=== PATIENT | female | born 2000 | race Caucasian/White ===

== ENCOUNTER 2018-06-04 01:31 | Emergency (ER) | payer OTHER ==
[~2018-06-04] VITALS: Ht 147.3 cm; Wt 47.3 kg
[2018-06-04 01:45] VITALS: TEMP 36.7; Ht 147.3 cm; Wt 47.3 kg
[2018-06-04] MEDS ORDERED: IBUPROFEN 600 MG TAB PO STA (02:01)
[2018-06-04] MEDS ORDERED: ACETAMINOPHEN 325 MG TAB PO STA (02:01)
[2018-06-04] MEDS ORDERED: LIDOCAINE 1% BUFFERED INJ 20 ML VIAL INFIL ONE (02:15)
[2018-06-04] MEDS ORDERED: IBUPROFEN 200 MG TAB ONE (02:17)
[2018-06-04] MEDS ORDERED: DROS1TAB24 PO (03:42)
[2018-06-04] MEDS ORDERED: VNTHFA/IN INH (03:43)
[2018-06-04] MEDS ORDERED: SERT50TA PO (03:43)
[2018-06-04] MEDS ORDERED: CETI10TA84 PO (03:43)
[2018-06-04] MEDS ORDERED: TRIA1SPR4 NAE (03:44)
[2018-06-04] MEDS ORDERED: BECL80AE7 PO (03:44)
[2018-06-04 04:03] VITALS: BP 93/52; PULSE 67; O2SAT 98
--- NOTE | 2018-06-04 07:27 | DIAGNOSTIC IMAGING REPORT ---
LEFT WRIST 4 VIEWS CLINICAL HISTORY: Fall with left wrist injury. FINDINGS: 4 views of the left wrist are obtained. No prior studies are available for comparison at the time of dictation. The skeletal structures are well mineralized. No fracture is seen. The joint spaces of the wrist are maintained. Mild soft tissue swelling is noted. IMPRESSION: Mild soft tissue swelling with no radiographic evidence of left wrist fracture. Electronically signed by: Gucci Love M.D. 06/04/2018 7:26 AM Dictated Date/Time: 06/04/2018 7:25 AM
--- NOTE | 2018-06-04 07:31 | DIAGNOSTIC IMAGING REPORT ---
HEAD CT NONCONTRAST CT DOSE: 537.48 mGy.cm HISTORY: Fall. Left sided head injury TECHNIQUE: Multiaxial CT images of the head were performed without the use of intravenous contrast. Automated exposure control was utilized for this study. A dose lowering technique was utilized adhering to the principles of ALARA. Comparison: None. Findings: The paranasal sinuses and mastoid air cells are clear. The calvarium and skull base are intact. The ventricles and sulci are within normal limits. There is no mass, hematoma, midline shift, or acute infarct. Impression: No acute intracranial abnormality. Electronically signed by: Reggie Rivera M.D. 06/04/2018 7:30 AM Dictated Date/Time: 06/04/2018 7:27 AM
--- NOTE | 2018-06-05 00:08 | EMERGENCY ROOM VISIT NOTE ---
History First contact with patient: 01:50 Chief Complaint: FALL Stated Complaint: SLIGHT NAUSEA History of Present Illness The patient is a 17 year old female who presents to the Emergency Room with complaints of laceration to her left wrist that occurred about 7 hours ago. The patient states that she is involved in a [employer] camping program, where participants spend [address] [facility]. The patient was evidently 11 miles away from her starting point, when she was stepping up over a fallen tree, lost her balance, and fell forward. She attempted to catch herself with her left wrist but was unsuccessful. She did strike her head off either a rock or a piece of the tree. The patient does not believe that she lost consciousness. She did not have seizure-like activity after the injury. The event was witnessed, and evacuation of the patient was performed. It did take several hours for her to be evacuated, and now she presents directly to the ER for evaluation. The patient considers himself usually healthy. She does not have lightheadedness, dizziness, neck pain, chest pain, chest tightness, shortness of breath, or abdominal pain. She has not had anything for pain control at this point. She does have some mild intermittent bleeding from a laceration on her left wrist. She states that she is up-to-date on her tetanus. She rates her overall discomfort a 4/10. The patient is accompanied by her mother today. Review of Systems More than 10 systems were reviewed and otherwise negative with the exception of history of present illness. Past Medical/Surgical History No chronic medical disease Family History No pertinent family history Social History Smoking Status: Never Smoker Smokeless Tobacco Use: No Drug Use: none Housing Status: lives with roommate Occupation Status: [employer] student Current/Historical Medications Scheduled Beclomethasone Dip (Qvar), 2 SPRAYS PO BID Cetirizine (Zyrtec), 10 MG PO DAILY Drospirenone-Ethinyl Estradiol (Lilly), 1 TAB PO DAILY Sertraline (Zoloft), 50 MG PO DAILY Triamcinolone Acetonide (Nasal (Nasacort Allergy 24Hr), 1 SPRAY FARHAN DAILY Scheduled PRN Albuterol Hfa (Ventolin Hfa), 2 PUFFS INH Q6H PRN for SOB/Wheezing Physical Exam Vital Signs Date Time Temp Pulse Resp B/P (MAP) Pulse Ox O2 Delivery O2 Flow Rate FiO2 8/15/18 04:03 67 18 93/52 98 Room Air 06/04/18 01:45 36.7 80 16 99/67 98 Room Air Physical Exam VITALS: Vitals are noted on the nurse's note and reviewed by myself. Vital signs stable. GENERAL: Well-developed, well-nourished, white female, who is in no acute distress and resting comfortably. Patient is cooperative with the examination. HEAD: Superficial abrasions are appreciated across the left middle and left lateral forehead. There is some mild bruising above the left eyebrow, but no other signs of trauma. These areas are not significantly tender. EARS: External ear normal. External auditory canals clear, tympanic membranes pearly coronado without erythema or effusion bilaterally. EYES: Pupils equal round and reactive to light and accommodation. Conjunctivae without injection, sclerae without icterus. Extraocular movements intact. NOSE: Patent, turbinates without inflammation or discharge. MOUTH: Mucous membranes moist. Tonsils are not enlarged. Pharynx without erythema, blood, or exudate. Uvula midline. Airway patent. NECK: Supple without nuchal rigidity. No lymphadenopathy. No thyromegaly. Cervical spine is nontender. HEART: Regular rate and rhythm without murmurs gallops or rubs. LUNGS: Clear to auscultation bilaterally without wheezes, rales or rhonchi. No retractions or accessory muscle use. ABDOMEN: Positive normal bowel sounds x 4. Soft, nontender, without masses or organomegaly. No guarding or rebound tenderness. MUSCULOSKELETAL: No muscle atrophy, erythema, or edema noted. Full range of motion in all extremities. There is a V-shaped 2.0 cm laceration to the volar lateral aspect of the left wrist that does gape and will require repair. The patient is able to move the wrist and elbow without difficulty. Construction Estimator strength is 5/5. No snuffbox tenderness. Neurovascular status is intact. No other significant muscular skeletal injury is noted. NEURO: Patient was alert and oriented to person place and time. CN II through XII grossly intact. No focal neurological deficits. GCS 15 Medical Decision & Procedures ER Provider Diagnostic Interpretation: HEAD CT NONCONTRAST CT DOSE: 537.48 mGy.cm HISTORY: Fall. Left sided head injury TECHNIQUE: Multiaxial CT images of the head were performed without the use of intravenous contrast. Automated exposure control was utilized for this study. A dose lowering technique was utilized adhering to the principles of ALARA. Comparison: None. Findings: The paranasal sinuses and mastoid air cells are clear. The calvarium and skull base are intact. The ventricles and sulci are within normal limits. There is no mass, hematoma, midline shift, or acute infarct. Impression: No acute intracranial abnormality. LEFT WRIST 4 VIEWS CLINICAL HISTORY: Fall with left wrist injury. FINDINGS: 4 views of the left wrist are obtained. No prior studies are available for comparison at the time of dictation. The skeletal structures are well mineralized. No fracture is seen. The joint spaces of the wrist are maintained. Mild soft tissue swelling is noted. IMPRESSION: Mild soft tissue swelling with no radiographic evidence of left wrist fracture. Medications Administered Medications (Trade) Dose Ordered Sig/Dee Route Start Time Stop Time Status Last Admin Dose Admin Acetaminophen (Tylenol Tab) 650 mg NOW STAT PO 06/04/18 02:01 06/04/18 02:03 DC 06/04/18 02:14 650 MG Ibuprofen (Motrin Tab) 400 mg NOW STAT PO 06/04/18 02:01 06/04/18 02:03 DC 06/04/18 02:01 400 MG Procedure Laceration repair. Patient elects to have their laceration repaired. Verbal consent was obtained to perform the procedure. There is an abundance of materials available for the procedure. Patient is not allergic to latex. Using sterile technique the wound was cleaned with Betadine. The area was sterilely draped. 4 ml of 1% buffered lidocaine was used to anesthetize the left wrist. Once the patient was anesthetized, the wound was copiously irrigated under pressure with sterile saline. The wound was explored and there were no deep structures injured such as tendons, bone, or significant blood vessels. The laceration was repaired using 3 simple interrupted 5-0 nylon sutures with the wound edges being well approximated. Hemostasis was achieved. The area was cleaned with sterile saline and dressed with bacitracin ointment and bandage. Patient tolerated the procedure well without complications. Blood loss was negligible. ED Course Physical exam and history were performed. Nursing notes, EMR, and Medication List were personally reviewed. Patient appears to have fallen while participating in a [place] hike several hours ago. On examination the patient does have some injury to her left side forehead with bruising. She also has a laceration to the left wrist. The patient otherwise appears well and without significant other findings. She was given Tylenol and Motrin here in the department for comfort. CT scan of the head was performed, as well as x-ray of her wrist. The patient's laceration was repaired as above, and she tolerated this well. X- ray of the wrist was reviewed by myself and radiology as showing radiopaque foreign body. CT scan of the head is also without acute traumatic findings. Overall the patient appears well for discharge home. She may experience concussion symptoms from her injury, and I did discuss this possibility at length with the patient and mother. Wound care instructions were discussed, as well as other conservative measures. The family was asked to follow with S or the primary care physician in the next few days for recheck. She was certainly otherwise invited back to the ER with any new, worsening, or concerning symptoms. The chart was completed utilizing [employer] Speech Voice Recognition Software. Grammatical errors, random word insertions, pronoun errors, and incomplete sentences are an occasional consequence of this system due to software limitations, ambient noise, and hardware issues. Any formal questions or concerns about the content, text, or information contained within the body of this dictation should be directly addressed to the provider for clarification. . Medical Decision Differential diagnosis: Etiologies such as concussion, contusion, fracture, laceration, subdural hematoma, epidural hematoma, intraparenchymal hemorrhage, as well as other traumatic pathologies were entertained. Impression Primary Impression: Fall Additional Impressions: Head injury Laceration of wrist Departure Information Dispostion Home / Self-Care Condition GOOD Forms HOME CARE DOCUMENTATION FORM, IMPORTANT VISIT INFORMATION Patient Instructions [facility], ED Head Injury Closed, ED Laceration All, ED Scar Tips to Minimize Additional Instructions You were seen and evaluated today on an emergency basis only. This is not a substitute for, or an effort to provide, complete comprehensive medical care. It is not possible to recognize and treat all injuries or illnesses in a single emergency department visit. For this reason it is recommended that you followup with S with any ongoing or persisting symptoms. Keep wound clean and dry. Do not allow any crusting or dried blood to accumulate on sutures. If this occurs, use a mild soap/water on a Q-tip to clean the wound. Do not use Peroxide to clean the wound as this can delay healing Use an antibiotic ointment like Bacitracin for 3-4 days, then let wound dry. You may bathe and shower as normal, but DO NOT SOAK the wound. Suture removal in about 10 days with your Family Doctor or in the ER. Return sooner for any signs of infection, increasing redness, swelling, or drainage. You are welcome to return to the emergency department anytime with new, worsening, or concerning symptoms. Problem Qualifiers
== END 2018-06-04 04:27 | disposition home or self-care (01) ==
LOC: C.EDB 01:32
DX: S61.512A Laceration without foreign body of left wrist, initial encounter (principal); S00.83XA Contusion of other part of head, initial encounter; W01.198A Fall on same level from slipping, tripping and stumbling with subsequent striking against other object, initial encounter; Z79.3 Long term (current) use of hormonal contraceptives; Z79.899 Other long term (current) drug therapy